=== PATIENT | female | born 1975 | race Hispanic/Latino ===

== ENCOUNTER 2021-03-26 20:40 | Emergency (ER) | payer OTHER ==
[~2021-03-26] VITALS: Ht 162.6 cm; Wt 82.6 kg
[2021-03-26] MEDS ORDERED: PROMETHAZINE/CODEINE 5 ML UDC PO PRN (21:45)
[2021-03-26] MEDS ORDERED: BENZONATATE 100 MG CAP PO ONE (22:30)
[2021-03-26] MEDS ORDERED: AZITHROMYCIN250 MG PO (22:30)
[2021-03-26] MEDS ORDERED: TESSALON PERLE100 MG PO (22:30)
[2021-03-26] MEDS ORDERED: BENZONATATE 100 MG CAP ONE (22:34)
[2021-03-26] MEDS ORDERED: PROMETHAZINE-C473 ML PO (22:38)
[2021-03-26] MEDS ORDERED: ONDANSETRON HCL 4 MG ORAL DISINTEGRATING TAB PO ONE (22:45)
== END 2021-03-26 23:00 | disposition home or self-care (01) ==
LOC: ER 20:59
DX: R05.9 Cough, unspecified (principal); J06.9 Acute upper respiratory infection, unspecified; I10 Essential (primary) hypertension; M32.9 Systemic lupus erythematosus, unspecified; Z79.899 Other long term (current) drug therapy; Z85.6 Personal history of leukemia; R94.31 Abnormal electrocardiogram [ECG] [EKG]; Z20.822 Contact with and (suspected) exposure to COVID-19
CPT/HCPCS: 71045; 93005; 99283; U0002